=== PATIENT | female | born 1985 | race Caucasian/White ===

== ENCOUNTER 2017-02-21 10:07 | Day surgery (SDC) | payer BC ==
[2017-02-14 13:37] LABS: BASOPHILS 0.1 %; BASOPHILS ABSOLUTE 0.01 10/3/uL (0.0-0.16); EOSINOPHILS 0.1 %; EOSINOPHILS ABSOLUTE 0.01 10/3/uL (0.0-0.53); HEMATOCRIT 39.9 % (36.0-48.0); HEMOGLOBIN 14.1 g/dL (12.0-16.0); IMMATURE GRANULOCYTES 0.3 %; IMMATURE GRANULOCYTES ABSOLUTE 0.02 10/3/uL (0.0-0.11); LYMPHOCYTES 25.7 %; LYMPHOCYTES ABSOLUTE 1.73 10/3/uL (0.67-4.30); MANUAL DIFF NO %; MEAN CORPUS HGB CONC 35.3 g/dL (32.0-36.0); MEAN CORPUSCULAR HEMOGLOB 32.3 pg (26.0-34.0); MEAN CORPUSCULAR VOLUME 91.3 fL (80-100); MONOCYTES 8.2 %; MONOCYTES ABSOLUTE 0.55 10/3/uL (0.21-1.20); NEUTROPHILS 65.6 %; PLATELET COUNT 156 10/3/uL (150-400); RBC DISTRIBUTION WIDTH 12.9 % (12.0-16.0); RED CELL COUNT 4.37 10/6/uL (4.0-5.6); WHITE BLOOD CELLS 6.7 10/3/uL (4.5-10.5)
[2017-02-14 13:55] LABS: A/G RATIO 1.3 (0.7-1.9); ALBUMIN 4.2 G/DL (3.5-5.0); ALKALINE PHOSPHATASE 79 U/L (45-117); BUN (BLOOD UREA NITROGEN) 15 MG/DL (6-23); CALCIUM, SERUM 8.8 MG/DL (8.5-10.4); CHLORIDE, SERUM 104 MMOL/L (96-112); CO2 (CARBON DIOXIDE) 30 MMOL/L (24-34); CREATININE 0.83 MG/DL (0.55-1.02); GFR AFRICAN AMERICAN 108 ML/MIN (>=60); GFR NON AFRICAN AMERICAN 93 ML/MIN (>=60); GLOBULIN 3.3 G/DL (2.5-4.1); GLUCOSE, SERUM 65 MG/DL (60-99); POTASSIUM, SERUM 3.5 MMOL/L (3.5-5.3); SGOT(AST) 13 U/L (5-40); SGPT(ALT) 25 U/L (5-65); SODIUM, SERUM 143 MMOL/L (135-148); TOTAL BILIRUBIN 0.8 MG/DL (0-1.2); TOTAL PROTEIN 7.5 G/DL (6.0-8.5)
--- NOTE | ~2017-02-21 | PREOPHP ---
PreOp History and Physical [place] [id number] [facility] [place] [address] NAME: RAYMOND MONSIVAIS : 83 STATUS : [facility]#: [id number] AGE: 31 ADM/REG DATE : 02/21/17 MR#: [id number] REPORT SERV DATE: 04/03/17 DICTATED BY: RHODA ARRIOLA III DATE: 02/21/17 REPORT STATUS : Draft TRANSCRIBED BY: ANJELICA DATE: 02/21/17 HISTORY OF PRESENT ILLNESS: This 31-year-old female comes to the operating room for resection or fulguration of rectal and perineal condylomata. The patient recently underwent colonoscopy and was found to have condyloma acuminata of the perineum and rectum. She has been treated locally and medically, but this has recurred. She comes now for fulguration of these lesions. PAST MEDICAL HISTORY: 1. History of migraine headaches. 2. Diabetes mellitus. 3. Irritable bowel syndrome. ALLERGIES: PENICILLIN, FLEXERIL, KEFLEX, AND IMITREX. PAST SURGICAL HISTORY: Includes tonsillectomy and hysterectomy. MEDICATIONS: Oral contraceptives, duloxetine, indomethacin, metformin, and Naprosyn. SOCIAL HISTORY: The patient has a previous history of tobacco use and history of regular alcohol use. FAMILY HISTORY: Positive for colitis and irritable bowel syndrome. REVIEW OF SYSTEMS: The patient complains of some rectal discomfort associated with these findings. A 14-point review of systems is otherwise unremarkable. OBJECTIVE PHYSICAL EXAM: GENERAL: This is a pleasant female, in no acute distress. She is alert and oriented x3. HEENT: Unremarkable. Cranial nerves 2 through 12 are normal. LUNGS: Clear. CARDIAC: Normal. ABDOMEN: Soft and nontender. RECTAL: Reveals several cutaneous lesions at the anal verge consistent with condyloma acuminata. Recent colonoscopy shows condyloma acuminata with nodular lesions consistent with this within the rectum. ASSESSMENT: 1. A 31-year-old female with condyloma acuminata of the rectum and perineum, biopsy proven, refractory to previous medical management and local treatment. 2. Jnh-[id number] diabetes mellitus. 3. History of tobacco abuse. PLAN: The patient comes to the operating room now for rectal examination under anesthesia with fulguration or excision of the remaining condyloma acuminata. This procedure, the risks, benefits, and alternatives, including, but not limited to the risk for bleeding, PreOp History and Physical [address] [place]. [address] NAME: RAYMOND MONSIVAIS : 83 STATUS : [facility] PAT#: [id number] AGE: 31 ADM/REG DATE : 02/21/17 MR#: [id number] REPORT SERV DATE: 04/03/17 DICTATED BY: RHODA ARRIOLA III DATE: 02/21/17 REPORT STATUS : Draft TRANSCRIBED BY: ANJELICA DATE: 02/21/17 infection, recurrent disease, sphincter injury with incontinence of stool, postop anal fissure or fistula, postop anal stricture requiring further surgery, and unforeseen complications including deep venous thrombosis, pulmonary embolus, myocardial infarction, stroke, pneumonia, and have been fully explained to the patient prior to surgery. The fact that this is a viral-associated infection with high risk for recurrence regardless of any intervention which has been given has been explained to the patient as well as the expected length of recovery. The option of nonoperative management has been discussed with the patient, but declined. The patient's questions have been answered. She understands the risks and agrees to surgery as planned. BHAVIN/ANJELICA Rhoda Arriola III, M.D. / [id number]
--- NOTE | ~2017-02-21 | OP ---
Record Of Operation [facility] [address] [place]. [address] NAME: RAYMOND MONSIVAIS : 83 STATUS : [facility]#: [id number] AGE: 31 ADM/REG DATE : 02/21/17 MR#: [id number] REPORT SERV DATE: 02/23/17 DICTATED BY: RHODA VELAZQUEZ III DATE: 02/23/17 REPORT STATUS : Draft TRANSCRIBED BY: MODL DATE: 02/23/17 DATE OF PROCEDURE: 02/23/2017 PREOPERATIVE DIAGNOSIS: Condyloma acuminata of the perineum and rectum. POSTOPERATIVE DIAGNOSIS: Condyloma acuminata of the perineum and rectum. PROCEDURE: Fulguration of Condyloma acuminata of the perineum and rectum. SURGEON: Rhoda Velazquez M.D. ANESTHESIA: General with intubation. COMPLICATIONS: None. ESTIMATED BLOOD LOSS: Less than 5 mL. SPECIMENS: None. DRAINS: None. LAP AND SPONGE COUNT: Correct x3. BRIEF HISTORY: This 31-year-old female presented with biopsy-proven Condyloma acuminata of the perineum and rectum. She had undergone previous treatment but had persistent disease in the rectum and possibly in the perineum. It was felt that fulguration of the remaining disease was indicated. This procedure, the risks, benefits, and alternatives, including but not limited to the risk for bleeding, infection, pain, swelling, scarring, deformity, sphincter injury with permanent incontinence of stool, postoperative anal fissure or fistula requiring further surgery, postoperative anal stricture requiring further surgery, and unforeseen complications including deep venous thrombosis, pulmonary embolus, myocardial infarction, stroke, pneumonia, and , were fully explained to the patient and family prior to surgery. The fact that this was a major operation with risk for major morbidity and mortality was explained. The expected length of recovery was explained. The patient had questions which were answered. She fully understood the risks and agreed to the surgery as planned. PROCEDURE IN DETAIL: After being properly identified and after discussing the risks of surgery with the patient and family again in the preoperative area, she was taken to the operating room and placed in the supine position on a stretcher, adjacent to the operating room table. General anesthesia was administered and she was intubated without difficulty. She was then carefully rolled into the prone position on the operating room table. This was done very carefully and meticulously and appropriate pads were placed beneath the extremities and shoulders. The perineum was prepped and draped sterilely in the usual fashion. A rectal retractor was placed into the rectum and rectal examination was performed. The patient had circumferential Condyloma acuminata in the distal rectum and mid rectum. Record Of Operation [facility] [address] [place]. [address] NAME: RAYMOND MONSIVAIS : 83 STATUS : [facility] PAT#: [id number] AGE: 31 ADM/REG DATE : 02/21/17 MR#: [id number] REPORT SERV DATE: 02/23/17 DICTATED BY: RHODA VELAZQUEZ III DATE: 02/23/17 REPORT STATUS : Draft TRANSCRIBED BY: ANJELICA DATE: 02/23/17 There was some disease extending to the perineum. Using the cautery, all visible condylomata were fulgurated. Aggressive fulguration was performed. All condylomata visible was fulgurated. Hemostasis was assured. Nupercaine ointment was placed on a thrombin plug and placed in the rectum. Dry dressings were applied over this. Anesthesia was reversed. The patient was taken to the recovery room in stable condition. She tolerated the procedure well. Her family was informed of the results of surgery. The patient was discharged when stable and comfortable. Her family was advised that she should remove her dressing tomorrow. They were advised she should not drive for two to three days after surgery while using narcotics, and that she should resume her usual medications. She was asked to return in two weeks for followup or sooner if any fever, chills, wound drainage, or other problems prior to that time. She was given a prescription for Percocet 7.5 one t.i.d., #12, as needed for pain, which she was advised not to use while driving. BHAVIN/ANJELICA Rhoda Velazquez III, M.D. / [id number] CC: Caitlyn Evangelista III S. Crago, MD
[~2017-02-21 10:07] MED LIST: ANADS PO; CYMBALTA30 PO; FORTAMET500 MG PO; IND25 PO; LEVSINTAB PO; PRILO PO; T PO; [UNRECOGNIZED DRUG - OTHER] PO
== END 2017-02-21 15:58 | disposition home or self-care (01) ==
LOC: SDC 10:07
PROVIDERS: Surgery
PROC: 0D5QXZZ Destruction of Anus, External Approach (ICD-10-PCS; principal; 2017-02-21 11:45)
DX: A63.0 Anogenital (venereal) warts (principal); K21.9 Gastro-esophageal reflux disease without esophagitis; K58.9 Irritable bowel syndrome, unspecified; K20.9 Esophagitis, unspecified; K63.5 Polyp of colon; E11.9 Type 2 diabetes mellitus without complications; F41.9 Anxiety disorder, unspecified; M41.9 Scoliosis, unspecified; N20.0 Calculus of kidney; Z88.0 Allergy status to penicillin; Z88.1 Allergy status to other antibiotic agents; Z88.8 Allergy status to other drugs, medicaments and biological substances; Z79.84 Long term (current) use of oral hypoglycemic drugs; Z79.899 Other long term (current) drug therapy; Z87.891 Personal history of nicotine dependence; Z90.710 Acquired absence of both cervix and uterus; Z90.89 Acquired absence of other organs; Z98.51 Tubal ligation status; Z98.890 Other specified postprocedural states
CPT/HCPCS: 80053; 82962; 85025; A9270-GY; J0690; J1170; J1200; J2250; J2405; J2710; J3010